=== PATIENT | female | born 1945 | race Two or more races ===

== ENCOUNTER 2018-06-09 11:39 | Outpatient (CLI) | payer OTHER ==
[~2018-06-09 11:39] MED LIST: LEVAQUIN750 MG PO; PHENABID DM TA1 EACH PO; TESSALON200 MG PO
== END 2018-06-09 11:46 | disposition home or self-care (01) ==
LOC: RAD 501 11:39
DX: H57.11 Ocular pain, right eye (principal)

== ENCOUNTER 2019-10-02 20:57 | Emergency (ER) | payer OTHER ==
[~2019-10-02] VITALS: Ht 165.1 cm; Wt 74.8 kg
[2019-10-02] MEDS ORDERED: NEURONTIN300 MG (21:08)
[2019-10-02] MEDS ORDERED: DALIRESP500 MCG (21:08)
[2019-10-02] MEDS ORDERED: COZAAR50 MG (21:09)
[2019-10-03] MEDS ORDERED: ZYNCOF 20-400120 ML PO (03:34)
[2019-10-03] MEDS ORDERED: XOPENEX0.63 MG/3 IH (03:34)
== END 2019-10-03 03:35 ==
LOC: ER 20:57
DX: J45.909 Unspecified asthma, uncomplicated (principal)